=== PATIENT | female | born 1950 | race Caucasian/White ===

== ENCOUNTER 2022-03-16 09:48 | Emergency (ER) | payer MEDICARE, BC ==
[~2022-03-16] VITALS: Ht 175.3 cm; Wt 63.6 kg
[2022-03-16 10:05] VITALS: BP 153/77
== END 2022-03-16 11:58 | disposition home or self-care (01) ==
LOC: ER 09:48
DX: S01.81XA Laceration without foreign body of other part of head, initial encounter (principal); S03.2XXA Dislocation of tooth, initial encounter; S80.211A Abrasion, right knee, initial encounter; W19.XXXA Unspecified fall, initial encounter; Y93.89 Activity, other specified; Y92.89 Other specified places as the place of occurrence of the external cause; Y99.8 Other external cause status
CPT/HCPCS: 12011; 99282